=== PATIENT | female | born 2000 | race Caucasian/White ===

== ENCOUNTER 2021-09-30 20:08 | Emergency (ER) | payer BC | END 2021-09-30 20:19 | disposition left against medical advice (07) | LOC: ERS 20:08 | DX: Z53.21 Procedure and treatment not carried out due to patient leaving prior to being seen by health care provider (principal) ==

== ENCOUNTER 2022-03-12 12:18 | Outpatient (CLI) | payer BC ==
[2022-03-12 13:23] LABS: BHCG - Serum Negative (NEGATIVE); Pregs Control Background? CLEAR/WHITE (CLR/WHITE); Pregs Control Bar Appear? YES (CONTROL BAR)
[2022-03-12 21:34] LABS: SARS-CoV-2 PCR by NAA Not Detected (NotDetected)
== END 2022-03-12 12:19 | disposition home or self-care (01) ==
LOC: LABBT 12:18
PROVIDERS: ATTEND Student in an Organized Health Care Education/Training Program
DX: Z01.812 Encounter for preprocedural laboratory examination (principal); J35.01 Chronic tonsillitis; G47.8 Other sleep disorders; R07.0 Pain in throat; Z20.822 Contact with and (suspected) exposure to COVID-19
CPT/HCPCS: 84703; 85014; U0003; U0005

== ENCOUNTER 2022-03-17 07:12 | Day surgery (SDC) | payer BC ==
[2022-03-12 12:04] VITALS: BMI 45.6
[2022-03-17] MEDS ORDERED: Ferric Subsulfate (ASTRINGYN) 8 GM VIAL ONE (08:16)
[2022-03-17] MEDS ORDERED: Meperidine HCl/PF 25 MG/ML VIAL ONE (08:25)
[2022-03-17] MEDS ORDERED: fentaNYL Citrate/PF 100 MCG/2 ML SYRINGE ONE (08:25)
[2022-03-17] MEDS ORDERED: Famotidine/PF 20 mg/2ml Vial ONE (08:25)
[2022-03-17] MEDS ORDERED: Ondansetron PF 4 MG/2 ML Vial ONE ×3 (08:33→08:35)
[2022-03-17] MEDS ORDERED: PROPOFOL 200 MG/20 ML VIAL ONE (08:35)
[2022-03-17] MEDS ORDERED: Succinylcholine 200 MG/10 ml SYRINGE FS ONE (08:35)
[2022-03-17] MEDS ORDERED: Ketorolac Tromethamine 30 MG/ML VIAL ONE (08:35)
[2022-03-17] MEDS ORDERED: Dexamethasone 20 MG/5 ML VIAL ONE (08:35)
[2022-03-17] MEDS ORDERED: Metoclopramide HCl 10 MG/2 ML VIAL ONE (08:35)
[2022-03-17] MEDS ORDERED: Lidocaine 1% PF 5 ML VIAL ONE (08:35)
== END 2022-03-17 11:25 | disposition home or self-care (01) ==
LOC: SDC 07:12
PROVIDERS: ATTEND Student in an Organized Health Care Education/Training Program
PROC: 0CTPXZZ Resection of Tonsils, External Approach (ICD-10-PCS; principal; 2022-03-17)
DX: J03.91 Acute recurrent tonsillitis, unspecified (principal); J35.01 Chronic tonsillitis; G47.30 Sleep apnea, unspecified; Z88.0 Allergy status to penicillin
CPT/HCPCS: 88304; J1100; J1885; J2175; J2405; J2704; J2765; S0028